=== PATIENT | female | born 1985 | race Caucasian/White ===

== ENCOUNTER 2018-02-28 16:58 | Emergency (ER) | payer OTHER, MEDICAID ==
[~2018-02-28] VITALS: Ht 162.6 cm; Wt 72.6 kg
[~2018-02-28 16:58] MED LIST: AMOXICILLIN500 M1 PO; BACTRIM DS TAB1 EACH PO; BIRTH CONTROL; CIPRO250 M1 PO; FLAGYL500 MG PO; HYDROCODON-ACE1 EAC7 PO; NAPROSYN500 MG PO; NOHOMEMEDICATIONS; NORCO 5-325 TA1 EACH PO; PENICILLIN VK250 MG PO; PRENATAL; TRAMADOL 50 MG50 MG PO
[2018-02-28] MEDS ORDERED: ZANTAC 150MG T150 MG PO (17:07)
[2018-02-28] MEDS ORDERED: HYDROCODONE-AP1 EAC6 PO (19:12)
[2018-02-28] MEDS ORDERED: ROBAXIN 750 MG750 M1 PO (19:12)
[2018-02-28 19:40] VITALS: BP 125/67
== END 2018-02-28 19:42 | disposition home or self-care (01) ==
LOC: M.ERS 16:58
DX: M54.2 Cervicalgia (principal); M54.6 Pain in thoracic spine; Z90.710 Acquired absence of both cervix and uterus